=== PATIENT | male | born 2005 | race African-American/Black ===

== ENCOUNTER 2024-08-10 00:01 | Emergency (ER) | payer SELFPAY ==
--- NOTE | 2024-08-10 00:30 | EDPHYS ---
Physician Documentation [facility] Name: Jack Zavala Age: 19 yrs Sex: Male : 2005 Arrival Date: 08/10/2024 Time: 00: Bed 8 Private MD: ED Physician Rachel Madrigal HPI: 08/10 00:27 This 19 yrs old Male presents to ER via EMS with complaints of Right hand pain sp3 secondary to 110 V shock. 00:27 19-year-old male with history of anxiety presents with right hand pain after being sp3 shocked while working on an electrical outlet 110 standard without turning to break her off. Shock was brief. Patient had shock feeling "in his whole body" but now the symptoms have resolved. He denies any current or ongoing headache, neck pain, chest pain, shortness of breath, extremity pain, abdominal pain, or any other signs or symptoms on ROS at this time.. Historical: - Allergies: 00:13 No Known Allergies; jb4 - PMHx: 00:13 Anxiety; jb4 - Immunization history:: Adult Immunizations up to date. - Infectious Disease History:: Denies. - Social history:: Smoking status: Patient denies any tobacco usage or history of. Patient uses street drugs, marijuana. ROS: 00:28 Constitutional: Negative for fever, chills, and weight loss, Eyes: Negative for injury, sp3 pain, redness, and discharge, ENT: Negative for injury, pain, and discharge, Neck: Negative for injury, pain, and swelling, Respiratory: Negative for shortness of breath, cough, wheezing, and pleuritic chest pain, Abdomen/GI: Negative for abdominal pain, nausea, vomiting, diarrhea, and constipation, Back: Negative for injury and pain, Skin: Negative for injury, rash, and discoloration, Neuro: Negative for headache, weakness, numbness, tingling, and seizure, Psych: Negative for depression, anxiety, suicide ideation, homicidal ideation, and hallucinations, Allergy/Immunology: Negative for hives, rash, and allergies, Endocrine: Negative for neck swelling, polydipsia, polyuria, polyphagia, and marked weight changes, Hematologic/Lymphatic: Negative for swollen nodes, abnormal bleeding, and unusual bruising, 00:28 All other systems are negative, Exam: 00:28 Constitutional: This is a well developed, well nourished patient who is awake, alert, sp3 and in no acute distress. Head/Face: Normocephalic, atraumatic. Eyes: Pupils equal round and reactive to light, extra-ocular motions intact. Lids and lashes normal. Conjunctiva and sclera are non-icteric and not injected. Cornea within normal limits. Periorbital areas with no swelling, redness, or edema. Neck: Trachea midline, no thyromegaly or masses palpated, and no cervical lymphadenopathy. Supple, full range of motion without nuchal rigidity, or vertebral point tenderness. No Meningismus. Chest/axilla: Normal chest wall appearance and motion. Nontender with no deformity. No lesions are appreciated. Cardiovascular: Regular rate and rhythm with a normal S1 and S2. No gallops, murmurs, or rubs. Normal PMI, no JVD. No pulse deficits. Respiratory: Lungs have equal breath sounds bilaterally, clear to auscultation and percussion. No rales, rhonchi or wheezes noted. No increased work of breathing, no retractions or nasal flaring. Abdomen/GI: Soft, non-tender, with normal bowel sounds. No distension or tympany. No guarding or rebound. No evidence of tenderness throughout. Skin: Warm, dry with normal turgor. Normal color with no rashes, no lesions, and no evidence of cellulitis. MS/ Extremity: Pulses equal, no cyanosis. Neurovascular intact. Full, normal range of motion. Neuro: Awake and alert, GCS 15, oriented to person, place, time, and situation. Cranial nerves II-XII grossly intact. Motor strength 5/5 in all extremities. Sensory grossly intact. Cerebellar exam normal. Normal gait. Psych: Awake, alert, with orientation to person, place and time. Behavior, mood, and affect are within normal limits. 00:28 ECG was reviewed by the Attending Physician. EKG demonstrates normal sinus rhythm at 81 bpm with normal intervals, normal QRS, high voltage for musculature and normal ST/T-segment's without evidence of acute ischemia. Vital Signs: 00:10 BP 177 / 95; Pulse 76; Resp 16; Temp 97.7(O); Pulse Ox 100% on R/A; Weight 83.91 kg jb4 (R); Height 6 ft. 2 in. ; 00:10 Body Mass Index 23.75 (83.91 kg, 187.96 cm) jb4 MDM: 00:10 Medical Screening Exam initiated kb 00:29 Data reviewed: vital signs, nurses notes, EKG. ED course: Vital signs normal. I am not sp3 suspecting rhabdomyolysis given brief shock at 110 V. Will reassure patient and safely discharge him home with PCP follow-up as needed.. 08/10 00:13 Order name: EKG; Complete Time: 00:14 sp3 08/10 00:13 Order name: EKG - Nurse/Tech; Complete Time: 00:17 sp3 Administered Medications: No medications were administered Disposition Summary: 08/10/24 00:30 Discharge Ordered Notes: Location: Home sp3 Condition: Stable sp3 Diagnosis - Electrical shock 110 V sp3 Followup: sp3 - With: Private Physician - When: Upon discharge from the Emergency Department - Reason: Continuance of care Discharge Instructions: - Discharge Summary Sheet sp3 - Electric Shock Injury sp3 Forms: - Medication Reconciliation Form sp3 - Antibiotic Education sp3 - Prescription Opioid Use sp3 - Patient Portal Instructions sp3 - Leadership Thank You Letter sp3 Signatures: Alaina Kwan FNP-C FNP-Frank Bernard RN RN jb4 Rachel Madrigal MD MD sp3
--- NOTE | 2024-08-10 00:30 | ER ---
Nurse's Notes [facility] Name: Jack Zavala Age: 19 yrs Sex: Male : 2005 Arrival Date: 08/10/2024 Time: 00:01 Bed 8 Private MD: Diagnosis: Electrical shock 110 V Presentation: 08/10 00:10 Chief complaint: EMS states: Pt was working on an electrical outlet and shocked his jb4 finger. He got anxious and started having chest pressure. Coronavirus screen: At this time, the client does not indicate any symptoms associated with coronavirus-19. Ebola Screen: No symptoms or risks identified at this time. Initial Sepsis Screen: Does the patient meet any 2 criteria? No. Patient's initial sepsis screen is negative. Does the patient have a suspected source of infection? No. Patient's initial sepsis screen is negative. Risk Assessment: Do you want to hurt yourself or someone else? Patient reports no desire to harm self or others. Onset of symptoms was August 10, 2024. Transition of care: patient was not received from another setting of care. 00:10 Method Of Arrival: EMS: [facility] jb4 00:10 Acuity: DIPTI 4 jb4 Historical: - Allergies: 00:13 No Known Allergies; jb4 - PMHx: 00:13 Anxiety; jb4 - Immunization history:: Adult Immunizations up to date. - Infectious Disease History:: Denies. - Social history:: Smoking status: Patient denies any tobacco usage or history of. Patient uses street drugs, marijuana. Screenin:14 [facility] ED Fall Risk Assessment (Adult) History of falling in the last 3 months, jb4 including since admission No falls in past 3 months (0 pts) Confusion or Disorientation No (0 pts) Intoxicated or Sedated No (0 pts) Impaired Gait No (0 pts) Mobility Assist Device Used No (0 pt) Altered Elimination No (0 pt) Score/Fall Risk Level 0 - 2 = Low Risk Oriented to surroundings, Maintained a safe environment. Abuse screen: Denies threats or abuse. Nutritional screening: No deficits noted. Tuberculosis screening: No symptoms or risk factors identified. Assessment: 00:14 General: Appears in no apparent distress. comfortable, Behavior is calm, cooperative, jb4 appropriate for age. Pain: Complains of pain in chest Pain does not radiate. Pain currently is 4 out of 10 on a pain scale. Neuro: Level of Consciousness is awake, alert, obeys commands, Oriented to person, place, time, situation. Cardiovascular: Patient's skin is warm and dry. Rhythm is sinus rhythm. Respiratory: Airway is patent Respiratory effort is even, unlabored, Respiratory pattern is regular, symmetrical. Derm: Skin is intact, Skin is pink, warm \T\ dry. Musculoskeletal: Circulation, motion, and sensation intact. Range of motion: intact in all extremities. Vital Signs: 00:10 BP 177 / 95; Pulse 76; Resp 16; Temp 97.7(O); Pulse Ox 100% on R/A; Weight 83.91 kg jb4 (R); Height 6 ft. 2 in. ; 00:10 Body Mass Index 23.75 (83.91 kg, 187.96 cm) jb4 ED Course: 00:03 Patient arrived in ED. vk 00:10 Rachel Madrigal MD is Attending Physician. kb 00:13 Triage completed. jb4 00:13 Arm band placed on right wrist. jb4 00:14 Patient has correct armband on for positive identification. Bed in low position. Call jb4 light in reach. Side rails up X 1. Provided Education on: plan of care. 00:14 No provider procedures requiring assistance completed. Patient did not have IV access jb4 during this emergency room visit. Administered Medications: No medications were administered Medication: 00:14 VIS not applicable for this client. jb4 Outcome: 00:30 Discharge ordered by . sp3 00:46 Discharged to home ambulatory, jb4 00:46 Condition: stable 00:46 Discharge instructions given to patient, Instructed on discharge instructions, follow up and referral plans. Demonstrated understanding of instructions, follow-up care, 00:48 Patient left the ED. jb4 Signatures: Alaina Kwan, JOSAFATC [employer] MECHANIC-Frank Bernard, ALFREDA RN jb4 Rachel Madrigal MD MD spAdrienne Juarez
[2024-08-10 01:04] VITALS: BP 177/95; TEMP 97.7; O2SAT 100
--- NOTE | 2024-08-10 12:02 | EKG ---
Test Date: 2024-08-10 Test Time: 00:07:03 Heavy Equipment Diesel Mechanic: LORI MEASUREMENT RESULTS: Intervals: Rate: 81 [place]: 152 QRSD: 96 QT: 342 QTc: 397 [place]: P: 69 [place]: 152 QRS: 73 T: 40 INTERPRETIVE STATEMENTS: Normal sinus rhythm with sinus arrhythmia Moderate voltage criteria for LVH, may be normal variant Nonspecific ST and T wave abnormality Abnormal ECG No previous ECG available for comparison Electronically Signed On 08-10-24 12:01:33 ABALONE FISHERMAN by Juan Jose Osuna
== END 2024-08-10 00:48 | disposition home or self-care (01) ==
LOC: ER 00:01
DX: T75.4XXA Electrocution, initial encounter (principal)
CPT/HCPCS: 93005; 99283